=== PATIENT | male | born 1965 | race Caucasian/White ===

== ENCOUNTER 2016-11-01 21:20 | Emergency (ER) | payer OTHER ==
[~2016-11-01] VITALS: Ht 172.7 cm; Wt 113.6 kg
[~2016-11-01 21:20] MED LIST: BACTRIM DS 8001 TAB PO; CLARITIN 1010 MG/TAB PO; FLEXERIL5 MG PO; FLONASE NASAL S16 GM NS; HCTZ 25MG TAB25 MG PO; LIPITOR20 MG PO; MOTRIN 800800 MG/TAB PO; NASONEX SPRAY17 GM NS; NEXIUM 20MG20 MG PO; NEXIUM 40MG40 MG PO; PREDNISONE20 MG PO; PROBIOTIC-MAJOR PO; SUDAFED30 MG PO; VIAGRA50 MG PO; VITAMIN B125000 MCG PO
[2016-11-01 21:24] VITALS: BP 142/88; TEMP 99.5
[2016-11-01 22:01] VITALS: PULSE 80
== END 2016-11-01 22:02 | disposition home or self-care (01) ==
LOC: COL.ER 21:20
DX: S61.011A Laceration without foreign body of right thumb without damage to nail, initial encounter (principal); W26.0XXA Contact with knife, initial encounter; Y92.009 Unspecified place in unspecified non-institutional (private) residence as the place of occurrence of the external cause; I10 Essential (primary) hypertension; Z88.0 Allergy status to penicillin

== ENCOUNTER 2017-04-27 13:00 | Day surgery (SDC) | payer OTHER ==
[~2017-04-27] VITALS: Ht 172.7 cm; Wt 115.2 kg
[2017-04-27] MEDS ORDERED: VITAMIN B12 681 TAB PO (13:16)
[2017-04-27] MEDS ORDERED: PRILOSEC 20MG20 MG PO (13:17)
[2017-04-27] MEDS ORDERED: CENTRUM SILVER1 CTB PO (13:18)
[2017-04-27] MEDS ORDERED: TYLENOL 500MG500 MG PO (13:18)
[2017-04-27 13:41] VITALS: BP 129/83; PULSE 72; TEMP 97.4
[2017-04-27 15:15] VITALS: BP 137/81; PULSE 72; TEMP 97.4
--- NOTE | 2017-04-27 15:15 | NUR ---
Pt returned to bay 6 post colonoscopy. Pt ambulated from cart to recliner in bay with a slow steady gait. Reclined back in chair with assistance. Pt appears very drowsy still and resting with eyes closed but awakens to name. VSS-see flowsheet. and daughter still in room. Pt requested a snack and lemon wainwright soda. Call light in reach.
[2017-04-27 15:30] VITALS: BP 143/82; PULSE 71
--- NOTE | 2017-04-27 15:30 | NUR ---
VSS-see flowsheet. Pt tolerated a muffin and pudding then requested more pudding. Denies complaints. Call light in reach.
[2017-04-27 15:45] VITALS: BP 144/81; PULSE 72
--- NOTE | 2017-04-27 15:45 | NUR ---
VSS_see flowsheet. Pt resting reclined in chair with call light in reach and family in room.
[2017-04-27 16:00] VITALS: BP 142/81; PULSE 72
--- NOTE | 2017-04-27 16:00 | NUR ---
VSS-see flowsheet. Pt continues to rest. Instructed to press nurse call light when feeling like he can get dressed and go over discharge paperwork.
--- NOTE | 2017-04-27 16:19 | NUR ---
Discharge teaching completed with pt, and daughter. Verbalized understanding. Pt taken via wheelchair to private vehicle for dc home with driving.
== END 2017-04-27 16:20 | disposition home or self-care (01) ==
LOC: SDCO 13:00
DX: Z12.11 Encounter for screening for malignant neoplasm of colon (principal); I10 Essential (primary) hypertension; E66.9 Obesity, unspecified; L29.9 Pruritus, unspecified; E78.00 Pure hypercholesterolemia, unspecified; R74.8 Abnormal levels of other serum enzymes
CPT/HCPCS: J2250; J3010; J7030

== ENCOUNTER 2017-09-10 16:08 | Emergency (ER) | payer OTHER ==
[~2017-09-10] VITALS: Ht 172.7 cm; Wt 118.2 kg
[~2017-09-10 16:08] MED LIST changes: +CENTRUM SILVER1 CTB PO; +PRILOSEC 20MG20 MG PO; +TYLENOL 500MG500 MG PO; +VITAMIN B12 681 TAB PO
[2017-09-10] MEDS ORDERED: ZESTORETIC 25 M1 TAB PO (16:32)
[2017-09-10] MEDS ORDERED: OMEGA-3 1000 MG1 CAP PO (16:34)
[2017-09-10] MEDS ORDERED: VITAMINE200 (16:34)
[2017-09-10] MEDS ORDERED: CIALIS10 MG PO (16:35)
[2017-09-10 16:40] LABS: INFLUENZA A POSITIVE
[2017-09-10 16:41] LABS: INFLUENZA B NEGATIVE
[2017-09-10] MEDS ORDERED: TAMIFLU 75MG75 MG PO (16:45)
[2017-09-10 16:53] VITALS: BP 128/67; PULSE 101; TEMP 99.1
== END 2017-09-10 16:52 | disposition home or self-care (01) ==
LOC: COL.ER 16:08
PROVIDERS: Physician Assistant
DX: J10.1 Influenza due to other identified influenza virus with other respiratory manifestations (principal); I10 Essential (primary) hypertension; E78.5 Hyperlipidemia, unspecified; K21.9 Gastro-esophageal reflux disease without esophagitis; Z98.84 Bariatric surgery status

== ENCOUNTER 2017-09-22 11:53 | Emergency (ER) | payer OTHER ==
[~2017-09-22] VITALS: Ht 172.7 cm; Wt 118.2 kg
[~2017-09-22 11:53] MED LIST changes: +CIALIS10 MG PO; +OMEGA-3 1000 MG1 CAP PO; +TAMIFLU 75MG75 MG PO; +VITAMINE200; +ZESTORETIC 25 M1 TAB PO
[2017-09-22 13:14] VITALS: TEMP 99.9
[2017-09-22] MEDS ORDERED: VITAMINC1000TA PO (13:32)
[2017-09-22 13:46] LABS: HEMATOCRIT 46.7 % (42.0-52.0); HEMOGLOBIN 16.6 g/dl (13.5-18.0); MEAN CELL VOLUME 88 fl (80.0-100.0); MEAN CORPUSCULAR HEMOGLOBIN 31 pg (27.0-31.0); MEAN CORPUSCULAR HGB CONC 36 g/dl (33.0-37.0); MEAN PLATELET VOLUME 10.4 fl (7.4-10.4); PLATELET COUNT 249 K/mm3 (130-400); REDCELL DISTRIBUTION WIDTH-CV 12.2 % (11.5-14.5)
[2017-09-22 13:59] LABS: ALBUMIN 4.7 gm/dL (3.5-5.0); BILIRUBIN,TOTAL 0.9 mg/dL (0.0-1.0); C-REACTIVE PROTEIN 1.8 mg/dL (0.0-0.9); CALCIUM 9.5 mg/dL (8.4-10.2); CREATININE, serum 0.9 mg/dL (0.66-1.25); POTASSIUM 3.9 mmol/L (3.4-5.0); TOTAL PROTEIN 7.8 gm/dL (6.4-8.2)
[2017-09-22 14:00] LABS: BAND 13 % (0-10); EOSINOPHIL 1 % (0-4); LYMPHOCYTE 4 % (20.0-51.0); NEUTROPHILS 79 % (42.0-75.2); NUCLEATED RED BLOOD CELL 1 (0-6)
[2017-09-22 14:01] LABS: PLATELET ESTIMATE NORMAL (NORMAL); POLYCHROMASIA 1+; STOMATOCYTE 1+
[2017-09-22 14:02] LABS: TOXIC GRANULATION PRESENT
[2017-09-22 14:18] LABS: COLLECTION METHOD CLEAN CATCH
[2017-09-22 14:23] LABS: MUCOUS Present /lpf; PH 6 (5-8); SQUAMOUS EPITHELIAL None Seen /hpf; URINE APPEARANCE Clear; URINE BACTERIA None Seen /hpf; URINE BILIRUBIN Negative (NEGATIVE); URINE BLOOD Negative (NEGATIVE); URINE COLOR Yellow; URINE GLUCOSE Negative (NEGATIVE); URINE KETONE Negative (NEGATIVE); URINE LEUKOCYTE ESTERASE Negative (NEGATIVE); URINE NITRATE Negative (NEGATIVE); URINE PROTEIN(semi-quant) 1+ (NEGATIVE); URINE RBC 0-2 /hpf
[2017-09-22] MEDS ORDERED: NORCO 325 MG-51 TAB PO (16:07)
[2017-09-22] MEDS ORDERED: ZOFRAN ODT4 MG PO (16:07)
[2017-09-22 16:34] VITALS: BP 115/79; PULSE 95
== END 2017-09-22 16:36 | disposition home or self-care (01) ==
LOC: COL.ER 11:53
PROVIDERS: Family Medicine
DX: K56.0 Paralytic ileus (principal); B34.9 Viral infection, unspecified; E86.9 Volume depletion, unspecified; I10 Essential (primary) hypertension; K21.9 Gastro-esophageal reflux disease without esophagitis
CPT/HCPCS: J1170; J2405; J7030; Q9967

== ENCOUNTER 2019-01-23 00:01 | Emergency (ER) | payer OTHER ==
[~2019-01-23] VITALS: Ht 172.7 cm; Wt 114.1 kg
[~2019-01-23 00:01] MED LIST changes: +NORCO 325 MG-51 TAB PO; +VITAMINC1000TA PO; +ZOFRAN ODT4 MG PO
[2019-01-23 00:06] VITALS: TEMP 97.1
[2019-01-23] MEDS ORDERED: HCTZ 25MG TAB25 MG PO (00:09)
[2019-01-23] MEDS ORDERED: GLUCOSAMIN 500 (00:10)
[2019-01-23 00:38] LABS: BASO # 0.1 (0.0-0.2); BASO % 0.6 % (0.0-2.0); EOS # 0.3 (0.0-0.7); EOS % 2.7 % (0-4.0); GRAN # 8.4 (1.4-6.5); GRAN % 69.9 % (42.2-75.2); HEMATOCRIT 45.1 % (42.0-52.0); HEMOGLOBIN 16.2 g/dl (13.5-18.0); LYMPH # 1.9 (1.2-3.4); LYMPH % 16.2 % (20.0-51.0); MEAN CELL VOLUME 89 fl (80.0-100.0); MEAN CORPUSCULAR HEMOGLOBIN 32 pg (27.0-31.0); MEAN CORPUSCULAR HGB CONC 36 g/dl (33.0-37.0); MEAN PLATELET VOLUME 10.7 fl (7.4-10.4); MONO # 1.2 (0.1-0.6); MONO % 10.1 % (1.7-9.3); PLATELET COUNT 249 K/mm3 (130-400); RED BLOOD COUNT 5.07 M/mm3 (4.20-5.60); REDCELL DISTRIBUTION WIDTH-CV 12.1 % (11.5-14.5)
[2019-01-23 00:49] LABS: ALBUMIN 4.4 gm/dL (3.5-5.0); BILIRUBIN,TOTAL 0.7 mg/dL (0.0-1.0); C-REACTIVE PROTEIN 1.2 mg/dL (0.0-0.9); CALCIUM 9.4 mg/dL (8.4-10.2); CREATININE, serum 0.9 (0.66-1.25); POTASSIUM 3.4 mmol/L (3.4-5.0); TOTAL PROTEIN 7.8 gm/dL (6.4-8.2)
[2019-01-23] MEDS ORDERED: CIPRO 500MG TA500 MG PO (02:35)
[2019-01-23] MEDS ORDERED: FLAGYL500 MG PO (02:35)
[2019-01-23 03:35] VITALS: BP 137/68; PULSE 76
== END 2019-01-23 03:35 | disposition home or self-care (01) ==
LOC: COL.ER 00:01
PROVIDERS: Nurse Practitioner
DX: K52.9 Noninfective gastroenteritis and colitis, unspecified (principal); Z90.49 Acquired absence of other specified parts of digestive tract; Z88.0 Allergy status to penicillin; Z88.6 Allergy status to analgesic agent; Z79.51 Long term (current) use of inhaled steroids
CPT/HCPCS: J2270; J2405; J7030; Q9967

== ENCOUNTER 2020-05-24 16:57 | Emergency (ER) | payer OTHER ==
[~2020-05-24] VITALS: Ht 172.7 cm; Wt 104.5 kg
[~2020-05-24 16:57] MED LIST changes: +CIPRO 500MG TA500 MG PO; +FLAGYL500 MG PO; +GLUCOSAMIN 500
[2020-05-24 17:05] VITALS: TEMP 98.9
[2020-05-24 19:58] LABS: BASO # 0.1 (0.0-0.2); BASO % 0.6 % (0.0-2.0); EOS # 0.2 (0.0-0.7); EOS % 2.1 % (0-4.0); GRAN # 5.2 (1.4-6.5); GRAN % 54.9 % (42.2-75.2); HEMATOCRIT 47.4 % (42.0-52.0); HEMOGLOBIN 16.4 g/dl (13.5-18.0); LYMPH # 2.9 (1.2-3.4); LYMPH % 30.6 % (20.0-51.0); MEAN CELL VOLUME 88 fl (80.0-100.0); MEAN CORPUSCULAR HEMOGLOBIN 30 pg (27.0-31.0); MEAN CORPUSCULAR HGB CONC 35 g/dl (33.0-37.0); MEAN PLATELET VOLUME 10.6 fl (7.4-10.4); MONO # 1.1 (0.1-0.6); MONO % 11.6 % (1.7-9.3); PLATELET COUNT 237 K/mm3 (130-400); RED BLOOD COUNT 5.42 M/mm3 (4.20-5.60); REDCELL DISTRIBUTION WIDTH-CV 12.3 % (11.5-14.5)
[2020-05-24 20:09] LABS: ALANINE AMINOTRANSFERASE 38 U/L (4-49); ALBUMIN 4.6 gm/dL (3.5-5.0); ALKALINE PHOSPHATASE 87 U/L (50-136); ANION GAP 10 mmol/L (7-16); AST,SGOT 33 U/L (15-37); BILIRUBIN,TOTAL 0.8 mg/dL (0.0-1.0); BLOOD UREA NITROGEN 16 mg/dL (9-20); CALCIUM 9.1 mg/dL (8.4-10.2); CARBON DIOXIDE 27 mmol/L (22-30); CHLORIDE 99 mmol/L (98-107); CREATININE, serum 0.65 (0.66-1.25); GLUCOSE 102 mg/dL (74-106); POTASSIUM 3.7 mmol/L (3.4-5.0); SODIUM 135 mmol/L (137-145)
[2020-05-24 20:20] LABS: TROPONIN-I < 0.012 ng/mL (0.000-0.035)
[2020-05-24] MEDS ORDERED: MEDROL 4MG DOSPA4 MG PO ×3 (20:49→21:07)
[2020-05-24] MEDS ORDERED: NORCO 325 MG-7.1 TAB PO ×3 (20:49→21:07)
[2020-05-24 21:12] VITALS: BP 140/81; PULSE 72
== END 2020-05-24 21:14 | disposition home or self-care (01) ==
LOC: COL.ER 16:57
PROVIDERS: Nurse Practitioner
DX: M54.6 Pain in thoracic spine (principal); I10 Essential (primary) hypertension; Z88.0 Allergy status to penicillin; Z88.6 Allergy status to analgesic agent; Z88.8 Allergy status to other drugs, medicaments and biological substances
CPT/HCPCS: J2360; J7512

== ENCOUNTER 2020-08-10 15:38 | Emergency (ER) | payer OTHER ==
[~2020-08-10] VITALS: Ht 172.7 cm; Wt 122.7 kg
[~2020-08-10 15:38] MED LIST changes: +MEDROL 4MG DOSPA4 MG PO; +NORCO 325 MG-7.1 TAB PO
[2020-08-10 18:22] LABS: BASO % 0.4 % (0.0-2.0); EOS % 0.6 % (0-4.0); GRAN # 4.7 (1.4-6.5); GRAN % 64.6 % (42.2-75.2); HEMATOCRIT 48.9 % (42.0-52.0); HEMOGLOBIN 16.4 g/dl (13.5-18.0); LYMPH # 1.2 (1.2-3.4); LYMPH % 16.6 % (20.0-51.0); MEAN CELL VOLUME 90 fl (80.0-100.0); MEAN CORPUSCULAR HEMOGLOBIN 30 pg (27.0-31.0); MEAN CORPUSCULAR HGB CONC 34 g/dl (33.0-37.0); MEAN PLATELET VOLUME 10.2 fl (7.4-10.4); MONO # 1.3 (0.1-0.6); MONO % 17.5 % (1.7-9.3); PLATELET COUNT 188 K/mm3 (130-400); RED BLOOD COUNT 5.46 M/mm3 (4.20-5.60); REDCELL DISTRIBUTION WIDTH-CV 12.6 % (11.5-14.5)
[2020-08-10 18:34] LABS: ALANINE AMINOTRANSFERASE 50 U/L (4-49); ALBUMIN 4.7 gm/dL (3.5-5.0); ALKALINE PHOSPHATASE 92 U/L (50-136); ANION GAP 12 mmol/L (7-16); AST,SGOT 37 U/L (15-37); BLOOD UREA NITROGEN 13 mg/dL (9-20); C-REACTIVE PROTEIN 2.1 mg/dL (0.0-0.9); CALCIUM 9.4 mg/dL (8.4-10.2); CARBON DIOXIDE 26 mmol/L (22-30); CHLORIDE 97 mmol/L (98-107); CREATININE, serum 0.78 (0.66-1.25); GLUCOSE 108 mg/dL (74-106); POTASSIUM 3.8 mmol/L (3.4-5.0); SODIUM 135 mmol/L (137-145); TOTAL PROTEIN 8.5 gm/dL (6.4-8.2)
[2020-08-10 18:45] LABS: TROPONIN-I < 0.012 ng/mL (0.000-0.035)
[2020-08-10] MEDS ORDERED: ZOFRAN ODT4 MG PO (19:19)
[2020-08-10 19:30] VITALS: BP 149/98; PULSE 90; TEMP 98.8
== END 2020-08-10 19:31 | disposition home or self-care (01) ==
LOC: COL.ER 15:38
PROVIDERS: Emergency Medicine
DX: U07.1 COVID-19 (principal); R60.0 Localized edema; Z88.0 Allergy status to penicillin; Z88.6 Allergy status to analgesic agent; Z88.8 Allergy status to other drugs, medicaments and biological substances
CPT/HCPCS: J1200; J2765; J7030

== ENCOUNTER 2020-08-15 14:02 | Inpatient (IN) | payer OTHER ==
[~2020-08-15] VITALS: Ht 172.7 cm; Wt 124.2 kg
[2020-08-15 15:24] LABS: BASO % 0.3 % (0.0-2.0); BILIRUBIN,TOTAL 0.9 mg/dL (0.0-1.0); CALCIUM 8.6 mg/dL (8.4-10.2); CREATININE, serum 0.8 (0.66-1.25); GRAN % 78.3 % (42.2-75.2); HEMOGLOBIN 15.2 g/dl (13.5-18.0); LYMPH # 0.8 (1.2-3.4); LYMPH % 12.1 % (20.0-51.0); MEAN CELL VOLUME 89 fl (80.0-100.0); MEAN CORPUSCULAR HEMOGLOBIN 31 pg (27.0-31.0); MEAN CORPUSCULAR HGB CONC 35 g/dl (33.0-37.0); MEAN PLATELET VOLUME 10.2 fl (7.4-10.4); MONO # 0.6 (0.1-0.6); MONO % 8.8 % (1.7-9.3); PLATELET COUNT 190 K/mm3 (130-400); POTASSIUM 3.5 mmol/L (3.4-5.0); RED BLOOD COUNT 4.96 M/mm3 (4.20-5.60); REDCELL DISTRIBUTION WIDTH-CV 12.4 % (11.5-14.5); TOTAL PROTEIN 7.5 gm/dL (6.4-8.2)
[2020-08-15 15:36] LABS: C-REACTIVE PROTEIN 14.4 mg/dL (0.0-0.9)
[2020-08-15] MEDS ORDERED: VIVLODEX5 MG PO (16:55)
[2020-08-15 18:09] VITALS: BP 130/72; PULSE 81; TEMP 98.5
--- NOTE | 2020-08-15 18:34 | NUR ---
PATIENT ADMITTED TO ROOM 306. HE IS ORIENTED TO ROOM AND IS FEELING BETTER WEARING THE OXYGEN. DNIES PAIN AT THIS TIME SINCE TAKING THE PERCOCET.
[2020-08-15 20:00] VITALS: BP 128/70; PULSE 81; TEMP 98.2
[2020-08-16] VITALS (7 sets, daily range): BP systolic 124–144; BP diastolic 60–74; PULSE 72–92; TEMP 97.6–101.3
--- NOTE | 2020-08-16 01:01 | NUR ---
Patient laying in bed and watching TV upon enter the room. Patient A/O x4. Patient denies any pain or discomfort. Denies SOB or dyspnea. SPO2 91% on 4L via NC. Breathing even and unlabored. No s/s of respiratory distress noted. Schduled meds given per order. NS infusing well at 75ml/hr via left hand. Left hand IV site has no s/s of complications. Patient states feeling hot. Temp 98.2 F. Offered ice water and ice pack per patient request. Call light within reach. Patient denies further needs at this time.
--- NOTE | 2020-08-16 05:47 | NUR ---
SPO2 88% on 4L via NC at 0000. Titrate oxygen to 6L. SPO2 90% on 6L via NC. Sputum specimen collected at 04:40 am and sent to lab. Patient states feeling hot at this time. Temp was 101.3F. PRN Tylenol given at 04:53am. Offered ice water and ice pack. Temp is 99.3 F at 05:45 am. SPO2 remains 90% on 6L via NC. Patient denies SOB or dyspnea. No acute respiratory distress noted. Call light within reach. Patient denies any needs at this time.
--- NOTE | 2020-08-16 06:11 | NUR ---
Called Shaheed Duncan and left voice message regarding infectious disease cousult for patient at 0600. Will give report to day shift nurse.
--- NOTE | 2020-08-16 06:40 | NUR ---
Report received from ROLANDO Cespedes. Pt resting in bed w/o complaint. Call light in reach. Will continue to monitor.
[2020-08-16 07:39] LABS: BASO % 0.1 % (0.0-2.0); HEMATOCRIT 44.1 % (42.0-52.0); LYMPH # 0.8 (1.2-3.4); LYMPH % 10.5 % (20.0-51.0); MEAN CELL VOLUME 91 fl (80.0-100.0); MEAN CORPUSCULAR HEMOGLOBIN 31 pg (27.0-31.0); MEAN CORPUSCULAR HGB CONC 34 g/dl (33.0-37.0); MEAN PLATELET VOLUME 10.7 fl (7.4-10.4); MONO # 0.7 (0.1-0.6); PLATELET COUNT 206 K/mm3 (130-400); RED BLOOD COUNT 4.87 M/mm3 (4.20-5.60); REDCELL DISTRIBUTION WIDTH-CV 12.3 % (11.5-14.5)
[2020-08-16 07:59] LABS: ALBUMIN 3.8 gm/dL (3.5-5.0); BILIRUBIN,TOTAL 0.6 mg/dL (0.0-1.0); CALCIUM 8.5 mg/dL (8.4-10.2); CREATININE, serum 0.65 (0.66-1.25)
--- NOTE | 2020-08-16 08:44 | NUR ---
Shift assessment complete. Pt sitting up in bed eating breakfast. NC on with O2 at 6L, sats in low 90s. Pt reports improvement in ability to taste, still lacks sense of smell. Reports SOA with exertion. Occasional productive cough. Reports mild pain described as "tension across forehead" that sometimes radiates to left eye, declines medication at this time. Heart RRR, lungs CTA, A&Ox4. Afebrile at this time. Will continue to monitor.
--- NOTE | 2020-08-16 14:00 | NUR ---
Plan to return home with Deisy . Sw spoke with patient via phone. Patient reports that his PCP is Geoffrey Jhaveri Patient reports [facility] for medications or [place]. Patient reports that his DTR [place] is secondary . Patient reports that he has CPAP nightly without consistency. POA is . Will continue to update and follow.
--- NOTE | 2020-08-16 18:25 | NUR ---
Pt had shower this AM with minimal assistance. Complaints of increased SOA when up to shower, improved after returning to bed without intervention. Remains on 6L NC with sats 91% or higher. Afebrile this shift. Reports nasal congestion causing discomfort and difficulty breathing, Afrin ordered BID. Also reports constipation, miralax ordered PRN. Complaint of mild tension headache this AM, resolved w/o intervention. First bag of remdesevir administered, levaquin and fluids infusing at this time.
--- NOTE | 2020-08-17 00:20 | NUR ---
Patient A/O x4. Patient c/o headache and rated discomfort level 8 out of 10. Denies chest pain, SoB or dyspnea at this time. SPO2 90% on 6L via NC. Offered PRN Tylenol but patient refused Tylenol. Patient states Tylenol doesn't work for him and requests Percocet. Called Liz MATHIAS and order received. PRN Percocet given at 20:50 pm for pain/headache. Scheduled meds given per OCT. Left hand IV site has no s/s of complications. Patient ate 100% of dinner. Offered ice water and ice pack per patient request. Call light within reach. Patient denies further needs at this time.
[2020-08-17 03:52] VITALS: BP 122/56; PULSE 79; TEMP 98.2
--- NOTE | 2020-08-17 05:46 | NUR ---
Patient states headache is tolerable this morning. Denies need for PRN pain medication. Offered ice water and ice pack throughout the shift. Call light within reach. Will give report to day shift nurse.
--- NOTE | 2020-08-17 07:23 | NUR ---
PATIENT ON 5LPM DOWN FROM 6 LPM, SPO2 92%.
--- NOTE | 2020-08-17 07:36 | NUR ---
PATIENT PULLED 1800 ON IS. GOOD JOB.
[2020-08-17 07:52] LABS: BASO % 0.2 % (0.0-2.0); GRAN # 7.6 (1.4-6.5); GRAN % 71.6 % (42.2-75.2); HEMATOCRIT 42.1 % (42.0-52.0); HEMOGLOBIN 14.7 g/dl (13.5-18.0); LYMPH # 1.9 (1.2-3.4); LYMPH % 17.7 % (20.0-51.0); MEAN CELL VOLUME 88 fl (80.0-100.0); MEAN CORPUSCULAR HEMOGLOBIN 31 pg (27.0-31.0); MEAN CORPUSCULAR HGB CONC 35 g/dl (33.0-37.0); MEAN PLATELET VOLUME 10.8 fl (7.4-10.4); MONO % 9.8 % (1.7-9.3); PLATELET COUNT 184 K/mm3 (130-400); RED BLOOD COUNT 4.79 M/mm3 (4.20-5.60); REDCELL DISTRIBUTION WIDTH-CV 12.4 % (11.5-14.5)
[2020-08-17 07:55] VITALS: BP 120/62; PULSE 75; TEMP 97.9
--- NOTE | 2020-08-17 08:01 | NUR ---
Patient lying in bed watching TV. Alert and oriented x4. Having a headache, rates pain 4/10. Will see if due for medication and administer if patient would like. Denies shortness of breath with lying still, becomes short of breath with activity. Lung sounds diminished. Oxygen on at 5L/NC. Productive cough of thick white sputum. Patient denies additional needs or concerns at this time.
[2020-08-17 08:06] LABS: CALCIUM 8.4 mg/dL (8.4-10.2); CREATININE, serum 0.74 (0.66-1.25); POTASSIUM 4.1 mmol/L (3.4-5.0)
[2020-08-17 11:21] VITALS: BP 120/71; PULSE 74; TEMP 98.2
[2020-08-17 16:00] VITALS: BP 118/73; PULSE 72; TEMP 98
--- NOTE | 2020-08-17 17:10 | NUR ---
Sitting up in bed watching TV. Denies pain. Provided Miralax as patient has not had recent BM. Denies additional needs at this time.
--- NOTE | 2020-08-17 17:21 | NUR ---
Patient blood sugar 268. Patient just drank some orange juice. Notified Dr. Hutchison. No new orders at this time. Continue to monitor as we have been.
[2020-08-17 21:03] VITALS: BP 136/64; PULSE 76; TEMP 98.5
--- NOTE | 2020-08-17 22:55 | NUR ---
Patient sitting up in bed upon enter the room. Patient denies any pain or discomfort. Denies headache, dizziness, SOB or dyspnea. Breathing even and unlabored. SPO2 91% on 3L via NC. Scheduled meds given per order. Left hand IV site has no s/s of complications. Offered ice water and ice pack per patient request. Call light within reach. Patient denies further needs at this time.
[2020-08-17 23:47] VITALS: BP 110/60; PULSE 70; TEMP 98.5
[2020-08-18 04:23] VITALS: BP 120/68; PULSE 66; TEMP 98
--- NOTE | 2020-08-18 05:49 | NUR ---
Patient slept on and off over the night. Denies need for pain meds throughout the night. SPO2 85% on 4L via NC at 04:30 am. Titrated Oxygen to 7L via NC to maintain above 90%. Patient denies SOB or dyspnea while at rest. No acute respiratory distress noted at this time. Call light within reach. Will give report to day shift nurse.
[2020-08-18 06:55] LABS: BASO % 0.1 % (0.0-2.0); HEMATOCRIT 44.6 % (42.0-52.0); HEMOGLOBIN 15.4 g/dl (13.5-18.0); LYMPH # 2.1 (1.2-3.4); MEAN CELL VOLUME 87 fl (80.0-100.0); MEAN CORPUSCULAR HEMOGLOBIN 30 pg (27.0-31.0); MEAN CORPUSCULAR HGB CONC 35 g/dl (33.0-37.0); MEAN PLATELET VOLUME 10.2 fl (7.4-10.4); MONO # 1.1 (0.1-0.6); MONO % 13.8 % (1.7-9.3); PLATELET COUNT 286 K/mm3 (130-400); RED BLOOD COUNT 5.11 M/mm3 (4.20-5.60); REDCELL DISTRIBUTION WIDTH-CV 12.1 % (11.5-14.5)
[2020-08-18 07:07] LABS: ALBUMIN 3.9 gm/dL (3.5-5.0); BILIRUBIN,TOTAL 0.7 mg/dL (0.0-1.0); CALCIUM 8.8 mg/dL (8.4-10.2); CREATININE, serum 0.76 (0.66-1.25); POTASSIUM 4.1 mmol/L (3.4-5.0); TOTAL PROTEIN 7.4 gm/dL (6.4-8.2)
[2020-08-18 08:38] VITALS: BP 117/62; PULSE 64; TEMP 97.6
--- NOTE | 2020-08-18 08:48 | NUR ---
Sitting up in bed watching TV. Breakfast tray just delivered. Alert and oriented x4. Denies pain. Oxygen at 6L/NC. Denies concerns or additional needs at this time.
[2020-08-18 12:17] VITALS: BP 118/72; PULSE 66; TEMP 97.3
--- NOTE | 2020-08-18 12:20 | NUR ---
Sitting in bed watching TV. Denies pain. Oxygen at 6 L/NC. Patient says that he feels like today his lungs are a little tighter than they had been. Gets short of air with activity. Denies needs at this time.
--- NOTE | 2020-08-18 15:35 | NUR ---
Sitting in bed watching TV. Denies pain or shortness of air. Oxygen on at 6L/NC. Denies needs at this time.
[2020-08-18 15:42] VITALS: BP 119/66; PULSE 73; TEMP 98.4
--- NOTE | 2020-08-18 18:20 | NUR ---
Patient sitting up in bed watching TV. Oxygen on at 6L/NC. Has been independent in room. Says that he is doing good at this time. Denies additional needs.
[2020-08-18 22:01] VITALS: BP 115/66; PULSE 70; TEMP 98.1
[2020-08-18 23:37] VITALS: BP 128/86; PULSE 78; TEMP 98.3
[2020-08-19] VITALS: BP 122/70; PULSE 70; TEMP 97.7
--- NOTE | 2020-08-19 03:55 | NUR ---
Patient alert and oriented. denies any pain. independent in the room. Patient does not have any question or concern at this time.
[2020-08-19 04:15] VITALS: BP 134/68; PULSE 101; TEMP 97.5
[2020-08-19 07:43] LABS: HEMATOCRIT 47.9 % (42.0-52.0); HEMOGLOBIN 16.4 g/dl (13.5-18.0); MEAN CELL VOLUME 87 fl (80.0-100.0); MEAN CORPUSCULAR HEMOGLOBIN 30 pg (27.0-31.0); MEAN CORPUSCULAR HGB CONC 34 g/dl (33.0-37.0); PLATELET COUNT 344 K/mm3 (130-400); RED BLOOD COUNT 5.53 M/mm3 (4.20-5.60); REDCELL DISTRIBUTION WIDTH-CV 12.1 % (11.5-14.5)
[2020-08-19 07:48] LABS: CALCIUM 9.3 mg/dL (8.4-10.2); CREATININE, serum 0.82 (0.66-1.25); POTASSIUM 4.2 mmol/L (3.4-5.0)
[2020-08-19 08:15] VITALS: BP 114/76; PULSE 67; TEMP 97.8
[2020-08-19 08:19] LABS: BAND 4 % (0-10); LYMPHOCYTE 26 % (20.0-51.0); METAMYELOCYTE 1 % (0-0); NEUTROPHILS 63 % (42.0-75.2); PLATELET ESTIMATE NORMAL (NORMAL)
--- NOTE | 2020-08-19 08:25 | NUR ---
Assessment complete. Pt resting in bed, A&O x 4. O2 at 5 L/min via NC, resp currently even and unlabored. Pt reports "feeling better." Pt denies pain at this time. Saline lock IV to left hand without s/s of complications. No further needs reported. Call light in reach.
[2020-08-19 11:07] VITALS: BP 135/95; PULSE 79; TEMP 97.8
[2020-08-19 16:39] VITALS: BP 126/66; PULSE 72; TEMP 98.2
--- NOTE | 2020-08-19 17:00 | NUR ---
Upon flushing IV to left hand and starting infusion, pt reports burning/pain at site. Infusion stopped, slight edema noted at insertion site. IV removed from left hand. New IV started to right hand and infusion restarted. Pt remains at 5 L/min O2 via NC, denies needs. Call light in reach.
[2020-08-19 20:43] VITALS: BP 142/84; PULSE 79; TEMP 98.5
[2020-08-20 00:30] VITALS: BP 144/92; PULSE 66; TEMP 97.6
[2020-08-20 04:17] VITALS: BP 124/76; PULSE 65; TEMP 97
[2020-08-20 08:05] LABS: HEMATOCRIT 46.7 % (42.0-52.0); HEMOGLOBIN 16.4 g/dl (13.5-18.0); MEAN CELL VOLUME 86 fl (80.0-100.0); MEAN CORPUSCULAR HEMOGLOBIN 30 pg (27.0-31.0); MEAN CORPUSCULAR HGB CONC 35 g/dl (33.0-37.0); MEAN PLATELET VOLUME 10.6 fl (7.4-10.4); PLATELET COUNT 353 K/mm3 (130-400); RED BLOOD COUNT 5.41 M/mm3 (4.20-5.60); REDCELL DISTRIBUTION WIDTH-CV 12.2 % (11.5-14.5)
[2020-08-20 08:19] LABS: ALBUMIN 3.9 gm/dL (3.5-5.0); BILIRUBIN UNCONJUGATED 0.6 mg/dL (0.0-1.1); BILIRUBIN,DIRECT 0.1 mg/dL (0.0-0.4); BILIRUBIN,TOTAL 0.7 mg/dL (0.0-1.0); CALCIUM 9.1 mg/dL (8.4-10.2); CREATININE, serum 0.83 (0.66-1.25); POTASSIUM 3.6 mmol/L (3.4-5.0); TOTAL PROTEIN 7.3 gm/dL (6.4-8.2)
[2020-08-20 09:22] LABS: LYMPHOCYTE 16 % (20.0-51.0); NEUTROPHILS 75 % (42.0-75.2); PLATELET ESTIMATE NORMAL (NORMAL)
[2020-08-20 09:30] VITALS: BP 122/72; PULSE 70; TEMP 97
--- NOTE | 2020-08-20 09:48 | NUR ---
Pt awake and alert upon entry, no C/O pain at this time. Shift assessments complete, left Pt call light in reach, bed in lowest position.
[2020-08-20 19:59] VITALS: BP 137/72; PULSE 83; TEMP 97.4
--- NOTE | 2020-08-20 22:39 | NUR ---
Individual denied pain and or discomfort. No s/s distress at this time . Continues with ABT and O2 via NC. VSS.
[2020-08-20 23:31] VITALS: BP 128/71; PULSE 76; TEMP 97.9
[2020-08-21 03:57] VITALS: BP 124/75; PULSE 64; TEMP 97.4
--- NOTE | 2020-08-21 08:50 | NUR ---
BREAKFAST WARMED UP AND BROUGHT IN TO PATIENT. PT DENYING PAIN/DISCOMFORT, PT AOX4, PT INDEPENDENT IN ROOM, PT VITALS TAKEN AND REVIEWED, PT ON 1.5L NC, PT WAS SOB ON WALK BACK TO BED AFTER BEING IN BATHROOM, PT REPORTS SOB IS NOT BAD IT WAS THE DAY BEFORE. ASSESSMENT PERFORMED, MEDICATIONS GIVEN, ICE WATER BROUGHT IN FOR PT. PT DENIES PAIN/DISCOMFORT. NO OTHER NEEDS AT THIS TIME.
[2020-08-21 08:58] VITALS: BP 138/82; PULSE 72
[2020-08-21 11:36] VITALS: BP 126/64; PULSE 73; TEMP 98
[2020-08-21 16:20] VITALS: BP 106/58; PULSE 70; TEMP 98.8
--- NOTE | 2020-08-21 17:28 | NUR ---
PT AOX4, PT DOWN TO 1.5L NC. WILL DO EXERCISE OX TOMORROW AND PLAN TO DC. UNEVENTFUL SHIFT, BS STABLE, MEDICATIONS GIVEN, HEALTHY APPETITE, GOOD ORAL FLUID INTAKE, DENIES PAIN/DISCOMFORT, NO OTHER NEEDS.
[2020-08-21 19:40] VITALS: BP 128/72; PULSE 82; TEMP 98.8
--- NOTE | 2020-08-21 20:30 | NUR ---
Initial shift assessment done- denies pain, denies SOB, o2 at 1.5L/nc-sats 93%, Tele on, no requests, hopes to go home tomorrow
[2020-08-21 23:44] VITALS: BP 130/78; PULSE 67; TEMP 98
[2020-08-22 03:57] VITALS: BP 114/72; PULSE 66; TEMP 97.6
--- NOTE | 2020-08-22 06:20 | NUR ---
Quiet night- VSS afebrile-
--- NOTE | 2020-08-22 07:36 | NUR ---
PT 92% @ REST ON ROOM AIR. WALKED BACK AND FORTH IN ROOM SPO2 90% CARRIE EXERCISE WELL W/O COMPLAINT.
[2020-08-22 08:12] LABS: HEMATOCRIT 46.1 % (42.0-52.0); HEMOGLOBIN 16.2 g/dl (13.5-18.0); MEAN CELL VOLUME 86 fl (80.0-100.0); MEAN CORPUSCULAR HEMOGLOBIN 30 pg (27.0-31.0); MEAN CORPUSCULAR HGB CONC 35 g/dl (33.0-37.0); MEAN PLATELET VOLUME 10.2 fl (7.4-10.4); PLATELET COUNT 389 K/mm3 (130-400); RED BLOOD COUNT 5.38 M/mm3 (4.20-5.60); REDCELL DISTRIBUTION WIDTH-CV 12.3 % (11.5-14.5)
--- NOTE | 2020-08-22 08:20 | NUR ---
PT PLEASANT, AOX4, PT SATTING 88-89% RA SO PLACED ON 1.5L O2, RT NOTIFIED. ASSESSMENT PERFORMED, VITALS TAKEN, MEDICATIONS GIVEN, BREAKFAST BROUGHT IN WITH FRESH ICE WATER, NO OTHER NEEDS.
[2020-08-22 08:22] LABS: ALBUMIN 3.8 gm/dL (3.5-5.0); BILIRUBIN,TOTAL 0.9 mg/dL (0.0-1.0); CALCIUM 9.2 mg/dL (8.4-10.2); CREATININE, serum 0.82 (0.66-1.25); POTASSIUM 3.6 mmol/L (3.4-5.0); TOTAL PROTEIN 7.1 gm/dL (6.4-8.2)
[2020-08-22 08:25] VITALS: BP 130/72; PULSE 71; TEMP 97.7
[2020-08-22 09:30] LABS: BAND 4 % (0-10); LYMPHOCYTE 14 % (20.0-51.0); MYELOCYTE 2 % (0-0); NEUTROPHILS 71 % (42.0-75.2); PLATELET ESTIMATE NORMAL (NORMAL)
[2020-08-22] MEDS ORDERED: DECADRON6 MG PO (10:48)
[2020-08-22 11:18] VITALS: BP 100/63; PULSE 72; TEMP 98.5
--- NOTE | 2020-08-22 11:49 | NUR ---
EDUCATED PT ON DISCHARGE INSTRUCTIONS AND MEDICATIONS. REMOVED IV IN RH. VITALS AND BS TAKEN. PT CALLING RIDE.
--- NOTE | 2020-08-22 11:56 | NUR ---
PT DENYING ANY WORSENING SOB, REPORTS NASAL DRAINAGE THAT STARTED RECENTLY, PT GRATEFUL FOR CARE RECIEVED. TISSUES BROUGHT TO PT, VITALS TAKEN, NO OTHER NEEDS AT THIS TIME.
--- NOTE | 2020-08-22 13:21 | NUR ---
PT ESCORTED OUT WITH BELONGINGS AND DISCHARGE PAPERWORK/WORK RELEASE.
== END 2020-08-22 13:22 | disposition home or self-care (01) | DRG 177 ==
LOC: COL.ER 14:02 → MEDICAL 15:57
PROVIDERS: Family Medicine; Physician Assistant; Student in an Organized Health Care Education/Training Program; ADMIT Family Medicine
PROC: XW033E5 Introduction of Remdesivir Anti-infective into Peripheral Vein, Percutaneous Approach, New Technology Group 5 (ICD-10-PCS; principal; 2020-08-16)
DX: U07.1 COVID-19 (principal); J12.82 Pneumonia due to coronavirus disease 2019; J96.01 Acute respiratory failure with hypoxia; Z68.41 Body mass index [BMI] 40.0-44.9, adult; E78.5 Hyperlipidemia, unspecified; E66.9 Obesity, unspecified; I10 Essential (primary) hypertension; K21.9 Gastro-esophageal reflux disease without esophagitis; Z88.0 Allergy status to penicillin; Z88.6 Allergy status to analgesic agent
CPT/HCPCS: 99222-AI; 99231-AI; 99232-AI; 99239; A9284; J1100; J1650; J1956; J7030; J7050; J7120; J8540

== ENCOUNTER 2020-12-12 09:54 | Emergency (ER) | payer OTHER ==
[~2020-12-12] VITALS: Ht 172.7 cm; Wt 113.6 kg
[~2020-12-12 09:54] MED LIST changes: +DECADRON6 MG PO; +VIVLODEX5 MG PO
[2020-12-12 09:58] VITALS: TEMP 98.9
[2020-12-12 10:34] LABS: BASO # 0.1 (0.0-0.2); BASO % 0.7 % (0.0-2.0); EOS # 0.2 (0.0-0.7); EOS % 2.7 % (0-4.0); GRAN # 5.1 (1.4-6.5); GRAN % 56.2 % (42.2-75.2); HEMOGLOBIN 17.5 g/dl (13.5-18.0); LYMPH # 2.6 (1.2-3.4); LYMPH % 29.3 % (20.0-51.0); MEAN CELL VOLUME 88 fl (80.0-100.0); MEAN CORPUSCULAR HEMOGLOBIN 30 pg (27.0-31.0); MEAN CORPUSCULAR HGB CONC 34 g/dl (33.0-37.0); MEAN PLATELET VOLUME 10.5 fl (7.4-10.4); MONO % 10.9 % (1.7-9.3); PLATELET COUNT 301 K/mm3 (130-400); RED BLOOD COUNT 5.78 M/mm3 (4.20-5.60); REDCELL DISTRIBUTION WIDTH-CV 12.3 % (11.5-14.5)
[2020-12-12 10:45] LABS: ALBUMIN 4.7 gm/dL (3.5-5.0); BILIRUBIN,TOTAL 0.6 mg/dL (0.0-1.0); C-REACTIVE PROTEIN 1.3 mg/dL (0.0-0.9); CALCIUM 9.5 mg/dL (8.4-10.2); CREATININE, serum 0.8 (0.66-1.25); POTASSIUM 3.9 mmol/L (3.4-5.0); TOTAL PROTEIN 8.5 gm/dL (6.4-8.2)
[2020-12-12] MEDS ORDERED: ANUSOL HC (13:09)
[2020-12-12] MEDS ORDERED: NORCO 325 MG-51 TAB PO (13:09)
[2020-12-12] MEDS ORDERED: ANUSOL-HC SUPPO25 MG RC (13:09)
[2020-12-12 13:21] LABS: COLLECTION METHOD CLEAN CATCH
[2020-12-12 13:28] LABS: MUCOUS Present /lpf; PH 5 (5-8); SQUAMOUS EPITHELIAL None Seen /hpf; URINE APPEARANCE Clear; URINE BACTERIA None Seen /hpf; URINE BILIRUBIN Negative (NEGATIVE); URINE BLOOD Negative (NEGATIVE); URINE COLOR Yellow; URINE GLUCOSE Negative (NEGATIVE); URINE KETONE Negative (NEGATIVE); URINE LEUKOCYTE ESTERASE Negative (NEGATIVE); URINE NITRATE Negative (NEGATIVE); URINE PROTEIN(semi-quant) Negative (NEGATIVE); URINE RBC 0-2 /hpf; URINE UROBILINOGEN Negative (NEGATIVE)
[2020-12-12] MEDS ORDERED: SINGULAIR 110 MG/TAB PO (14:10)
[2020-12-12] MEDS ORDERED: AYR SALINE GEL1 NS (14:10)
[2020-12-12 14:12] VITALS: BP 130/92; PULSE 68
== END 2020-12-12 14:15 | disposition home or self-care (01) ==
LOC: COL.ER 09:54
PROVIDERS: Emergency Medicine
DX: K52.89 Other specified noninfective gastroenteritis and colitis (principal); K64.5 Perianal venous thrombosis; E86.0 Dehydration; Z86.16 Personal history of COVID-19; Z88.0 Allergy status to penicillin; Z88.6 Allergy status to analgesic agent; Z88.8 Allergy status to other drugs, medicaments and biological substances
CPT/HCPCS: C9113; J2270; J2405; J7030

== ENCOUNTER 2021-09-05 06:13 | Emergency (ER) | payer OTHER ==
[~2021-09-05] VITALS: Ht 172.7 cm; Wt 110.9 kg
[~2021-09-05 06:13] MED LIST changes: +ANUSOL HC; +ANUSOL-HC SUPPO25 MG RC; +AYR SALINE GEL1 NS; +SINGULAIR 110 MG/TAB PO
[2021-09-05 06:45] VITALS: TEMP 98
[2021-09-05] MEDS ORDERED: OMNICEF 300MG300 MG PO (07:22)
[2021-09-05 07:40] VITALS: BP 141/81; PULSE 77
== END 2021-09-05 07:40 | disposition home or self-care (01) ==
LOC: COL.ER 06:13
DX: U07.1 COVID-19 (principal); J32.0 Chronic maxillary sinusitis; I10 Essential (primary) hypertension; K21.9 Gastro-esophageal reflux disease without esophagitis; Z88.0 Allergy status to penicillin; Z79.899 Other long term (current) drug therapy

== ENCOUNTER → 2022-02-23 | Outpatient (CLI) | payer OTHER ==
[~2022-02-23] VITALS: Ht 172.7 cm; Wt 120.0 kg
[~2022-02-23] MED LIST changes: +CIALIS2.5 MG PO; +NEURONTIN400 MG/CAP PO; +OMNICEF 300MG300 MG PO; +ZYRTEC 10MG10 MG PO
[2022-02-23 13:55] VITALS: BP 154/92; PULSE 73; TEMP 97.7
[2022-02-23 15:08] VITALS: BP 153/94; PULSE 75
== END ==
LOC: COL.RAD 12:49
DX: M51.36 Other intervertebral disc degeneration, lumbar region (principal)
CPT/HCPCS: J3301